=== PATIENT | female | born 1960 | race Caucasian/White ===

== ENCOUNTER 2024-04-13 18:40 | Emergency (ER) | payer BC, SELFPAY ==
[2024-04-13 19:02] VITALS: BP 153/82
[2024-04-13 19:16] LABS: % Basophils 0.6 % (0-2); % Eosinophils 0.9 % (0-6); % Immature Granulocytes 0.1 % (0-0.5); % Lymphocytes 29.7 % (20.5-51.1); % Monocytes 7.4 % (1.7-9.3); % Neutrophils 61.3 % (42.2-75.2); Absolute Eosinophils 0.1 10^3/uL (0-0.7); Absolute Lymphocytes 2.1 10^3/uL (1.2-3.4); Absolute Monocytes 0.5 10^3/uL (0.1-0.6); Absolute Neutrophils 4.3 10^3/uL (1.4-6.5); Hematocrit 37.4 % (37.0-47.0); Hemoglobin 12.7 g/dL (12.0-16.0); Mean Corpuscular Volume 88.4 fL (81.0-99.0); Nucleated Red Blood Cells % 0 %; Platelet Count 243 10^3/uL (130-400); Red Blood Cell Count 4.23 10^6/uL (4.20-5.40); Red Cell Dist. Width 13.3 % (11.5-14.5)
[2024-04-13 19:32] LABS: ALT (SGPT) 16 U/L (0-35); AST (SGOT) 27 U/L (14-36); Albumin 4.9 g/dl (3.5-5.0); Alkaline Phosphatase 92 U/L (38-126); Blood Urea Nitrogen 24 mg/dl (7-17); Calcium 9.9 mg/dl (8.4-10.2); Carbon Dioxide 30 mmol/L (22-30); Chloride 104 mmol/L (98-107); Glucose 96 mg/dl (70-99); Potassium 4.7 mmol/L (3.5-5.1); Sodium 144 mmol/L (135-145); Total Bilirubin 0.6 mg/dl (0.2-1.3); Total Protein 7.5 g/dl (6.3-8.2); eGFR > 60.00
[2024-04-13 19:39] LABS: Troponin I 0.026 ng/ml
[2024-04-13 21:32] VITALS: BMI 20.9
--- NOTE | 2024-04-13 21:54 | ED.GENMED ---
History of Present Illness
<Tatiana Coleman DO, Resident - Last Filed: 04/13/24 23:44>
General
Chief Complaint: Chest Pain
Source: patient and spouse
Exam Limitations: none
Time Seen by Provider: 04/13/24 21:31
Nursing documentation reviewed up to this point in time: agreed with except (pt now endorses SOB)
History of Present Illness
History of Present Illness:
Ms. Debra Stone is a 63yo previously healthy, active female presenting to the ED with chest pain. The substernal chest pain is a dull pressure. The first episode occurred yesterday at 21:30 after the patient walked up stairs. She rated the pain
10/10 and it resolved within 5 minutes. The chest pain is associated with SOB and lethargy. There is no radiation of the pain. There are no alleviating or aggravating factors. The second episode occurred today at 18:30 while playing golf. The pain
was a 3/10 and the pt felt more lethargic. ECG at urgent care was normal. While in the ED waiting room, the patient described swelling on both sides of her neck, which has since resolved. She is still lethargic. Pt denies JAIME, fever, weakness,
numbness, vision changes, N/V/D, leg swelling.
Past History
<Tatiana Coleman DO, Resident - Last Filed: 04/13/24 23:44>
Past History
ED Past Medical History: None
Patient has exhibited threatening behavior?: No
Social History
Personal:
Review of Systems
<Tatiana Coleman DO, Resident - Last Filed: 04/13/24 23:44>
Review of Systems
Allergies reviewed?: Yes
Constitutional: Reports fatigue; Denies fever or sleep disturbance
EENT: Reports no symptoms
Respiratory: Reports trouble breathing; Denies cough
Cardiac: Reports chest pain; Denies palpitations or syncope
ABD/GI: Denies abdominal pain, nausea, vomiting or diarrhea
: Reports no symptoms
Musculoskeletal: Denies edema
Neurological: Denies dizzy, headache or weakness
Phy Exam
<Tatiana Coleman DO, Resident - Last Filed: 04/13/24 23:44>
Physical Exam
Physical Exam:
.
General Physical Exam
General Presentation: well appearing
General age: appears younger than age
General Skin: warm
General Habitus: normal
General Mental: alert
General Hydration: appears well hydrated
Cardiovascular Exam
Cardiovascular Exam: regular rate/rhythm, no edema, no gallop, no JVD, no murmur and other (carotid bruit b/l, R>L)
Heart Sounds: normal
TONY Score
Is patient's age greater than or equal to 65 years: No
Does patient have 3 or more CAD risk factors?: No
Does patient have known CAD: No
Has patient used ASA in past seven days?: No
Has patient had severe angina in past 24 hrs?: Yes
Are patient's cardiac markers elevated?: No
Are there ST changes greater 0.05mm?: No
Result score?: 1
Pulmonary Exam
Pulmonary Exam: lungs clear
Oxygen Status: room air
Gastrointestinal Exam
Gastrointestinal Exam: normal bowel sounds, non tender, soft, no organomegaly, no pulsatile mass and non distended
<Guido Capone DO - Last Filed: 04/15/24 22:58>
TONY Score
Result score?: 1
Scores
<Guido Capone DO - Last Filed: 04/15/24 22:58>
Heart Score for Chest Pain Patients
STEMI patient?: No
History: Slightly or Non-Suspicious
ECG: Normal
Age: >45 - <65 years
Risk Factors: 1 or 2 Risk Factors
Troponin: </= Normal Limit
Heart Score for Chest Pain Patients: 2
Heart Score Risk: 2.5% MACE over next 6 weeks
Course
<Tatiana Coleman DO, Resident - Last Filed: 04/13/24 23:44>
Orders/Labs/Results
Orders:
Orders
04/13/24 18:54
Electrocardiogram (*1) Urgent
Reason for Study: Chest Pain
Cardiac Monitoring- Treatment ONCE
EKG- Treatment ONCE
IV Insert/Care/Rem.- Treatment PRN
O2 Therapy [RESP] Urgent
Titrate/Wean O2 to maintain O2 sat greater than (%): 90
Special Instructions: Maintain sats >/=90%
Pulse Ox/spot Check [RESP] Urgent
Quantity: 1
Special Instructions: ON ROOM AIR
04/13/24 19:08
Complete Blood Count/With Diff Urgent
Comprehensive Metabolic Panel Urgent
Troponin I Urgent
04/13/24 21:50
Troponin I Urgent
04/13/24 22:30
0.9% Sodium Chloride 1000 ml [Nss] 1,000 ml IV 500 mls/hr
04/13/24 22:55
CT Chest Angio W/wo Iv Contras Urgent
Comment:
Reason For Exam: cp radi into neck
04/13/24 23:23
EKG- Treatment ONCE
04/14/24
Electrocardiogram (*1) Stat
Reason for Study: Chest Pain
04/14/24 01:06
Troponin I Urgent
Abnormal Lab Results
04/13/24
19:08
MPV 11.0 H fL
(7.4-10.4)
BUN 24 H mg/dl
(7-17)
04/13/24 19:08
04/13/24 19:08
Vital Signs
Initial and Last Documented VS:
Initial Vital Signs
Temp Pulse Resp BP Pulse Ox
98.3 F 82 19 153/82 100
04/13/24 19:02 04/13/24 19:02 04/13/24 19:02 04/13/24 19:02 04/13/24 19:02
Last Documented Vital Signs
Temp Pulse Resp BP Pulse Ox
98.3 F 54 14 120/71 99
04/13/24 19:02 04/14/24 01:45 04/14/24 01:45 04/14/24 01:45 04/14/24 01:45
<Guido Capone, DO - Last Filed: 04/15/24 22:58>
Orders/Labs/Results
Orders:
Orders
04/13/24 18:54
Electrocardiogram (*1) Urgent
Reason for Study: Chest Pain
Cardiac Monitoring- Treatment ONCE
EKG- Treatment ONCE
IV Insert/Care/Rem.- Treatment PRN
O2 Therapy [RESP] Urgent
Titrate/Wean O2 to maintain O2 sat greater than (%): 90
Special Instructions: Maintain sats >/=90%
Pulse Ox/spot Check [RESP] Urgent
Quantity: 1
Special Instructions: ON ROOM AIR
04/13/24 19:08
Complete Blood Count/With Diff Urgent
Comprehensive Metabolic Panel Urgent
Troponin I Urgent
04/13/24 21:50
Troponin I Urgent
04/13/24 22:30
0.9% Sodium Chloride 1000 ml [Nss] 1,000 ml IV 500 mls/hr
04/13/24 22:55
CT Chest Angio W/wo Iv Contras Urgent
Comment:
Reason For Exam: cp radi into neck
04/13/24 23:23
EKG- Treatment ONCE
04/14/24
Electrocardiogram (*1) Stat
Reason for Study: Chest Pain
04/14/24 01:06
Troponin I Urgent
Abnormal Lab Results
04/13/24
19:08
MPV 11.0 H fL
(7.4-10.4)
BUN 24 H mg/dl
(7-17)
04/13/24 19:08
04/13/24 19:08
Vital Signs
Initial and Last Documented VS:
Initial Vital Signs
Temp Pulse Resp BP Pulse Ox
98.3 F 82 19 153/82 100
04/13/24 19:02 04/13/24 19:02 04/13/24 19:02 04/13/24 19:02 04/13/24 19:02
Last Documented Vital Signs
Temp Pulse Resp BP Pulse Ox
98.3 F 54 14 120/71 99
04/13/24 19:02 04/14/24 01:45 04/14/24 01:45 04/14/24 01:45 04/14/24 01:45
<Guido Capone DO - Last Filed: 04/15/24 22:58>
*Critical Care Note
Total Time (30-74mins, 75-104mins- exclusive of procedures): Not Applicable
<Guido Capone DO - Last Filed: 04/15/24 22:58>
Update Note
Update Note:
CTA CHEST
IMPRESSION:
1. Adequate technical study. No acute pulmonary embolism.
2. No thoracic aortic aneurysm or acute aortic dissection. Bibasilar atelectasis
Incidentals:
-Calcified coronary atherosclerosis
- No acute osseous abnormality.
- No acute abnormality within the visualized abdomen.
- No thoracic lymphadenopathy or suspicious lymph nodes.
Case finalized on Apr 14 2024 12:09AM ET
ED Attending Note
<Tatiana Coleman DO, Resident - Last Filed: 04/13/24 23:44>
-
Portions of this chart may have been created with voice recognition software.� Occasional wrong word or��sound alike� substitutions may have occurred due to the inherent limitations of voice recognition software.
<Guido Capone, - Last Filed: 04/15/24 22:58>
ED Attending Note
Patient seen and examined by attending physician: Yes
I performed the substantive portion of visit, reviewed & personally made and approve the management plan that is documented in note by myself or PHILIPP.: Yes
ED Attending Note:
This is a pleasant 63-year-old female who presents with 2 days of left-sided chest pain with radiation into the neck. She describes it as a dull pressure sensation. She states its intermittent and currently has no chest pain. First episode
occurred approximate 24 hours ago after patient was walking up steps. Today the pain occurred while playing golf. She states that today's pain was much less severe than what she experienced yesterday. Patient went to urgent care and had an EKG
which was determined to be normal. Patient denies any current symptoms at this time. Patient was seen in conjunction with the general internal medicine doctor. I have reviewed and agree with her history and treatment plan. On my independent physical exam patient is
awake, alert, and oriented x 3 in no acute distress. Mentating appropriately. Neck is normal without any bruits. Lungs are clear to auscultation bilateral without wheezes rales or rhonchi present. Heart is regular rate and rhythm. Moves all 4
extremities. Skin is warm and dry. Normal affect. Abdomen is soft and nontender. No distention. No tenderness to palpation on anterior chest wall.
Patient does not drink alcohol, engage in illicit drug use, or use tobacco. She denies any previous cardiac history. She has never seen a quoter. Denies any familial cardiac history. She takes gummy vitamins and no other medications. She
is active and exercises daily.
First troponin was slightly bumped. Second troponin is coming down. Will trend for a third
Discharge Plan
Departure
Patient Disposition: Home (Routine Discharge)
Date of Disposition: 04/14/24
Time of Disposition: 01:40
Patient with high blood pressure during this ER visit?: Yes
Discharge Problem:
Chest pain
Instructions: Chest Pain DCA Follow Up, BLOOD PRESSURE
Prescriptions:
No Action
No Current Medications
0
Referrals:
[facility]- [facility] [Provider Group]
Beth Tadeo MD [Family Provider] -
Activity Restrictions/Additional Instructions:
Please follow-up with [facility]. They should be giving you a call in the next day.
It was a pleasure meeting you and taking part in your care. We hope for your continued healing and wellness.
Please read discharge instructions in their entirety. However, they are for general education and may not describe your exact diagnosis at discharge. Information on your ER visit and medical conditions were discussed with you along with appropriate
follow up information...
If indicated, please take your medications as instructed and indicated on discharge paperwork.
Please schedule a follow up appointment as directed. Call to schedule an appointment
Please return to the emergency department with ANY change in, persisting, or worsening of symptoms. If any of your symptoms do not improve, or persist, or become more severe within 6-12 hours, please return to the emergency department for further
care.
Please return to the emergency department if you develop a headache, neck pain/stiffness, fever greater than 100.4F, chest pain, shortness of breath, persistent nausea, vomiting, slurred speech, difficulty walking, numbness/tingling, weakness, signs
of infection or any other symptoms that are worrisome to you.
If you have any questions or concerns please do not hesitate to call the Hospital at or E-mail me directly at [email or web address]
Interventions
Interventions:
*Risk Screen - Suicide Last Done: 04/13/24 19:02
*General Assessment Last Done: 04/13/24 19:02
*Neglect/Abuse Screening Last Done: 04/13/24 19:02
ED- Fall Risk Assessment Last Done: 04/13/24 21:39
*ED COVID-19 Vaccine History Last Done: 04/13/24 21:40
*Nursing Disposition Last Done: 04/14/24 01:45
ED- Cardiac Assessment Last Done: 04/13/24 21:45
Discharge Date and Time
Discharge Date/Time: 04/14/24 01:48
Print Language: SAMOAN
[2024-04-13 22:00] VITALS: BP 115/71
[2024-04-13] MEDS: NSS 1000 IV (22:31)
[2024-04-13 22:32] LABS: Troponin I 0.017 ng/ml
[2024-04-13 23:00] VITALS: BP 115/75
[2024-04-14] VITALS: BP 123/72
[2024-04-14 00:03] VITALS: BP 123/72
[2024-04-14] MEDS: NSS IV (01:20)
[2024-04-14 01:37] LABS: Troponin I < 0.012 ng/ml
[2024-04-14 01:45] VITALS: BP 120/71
== END 2024-04-14 01:48 | disposition home or self-care (01) ==
LOC: EMR 18:40
PROVIDERS: Emergency Medicine; Student in an Organized Health Care Education/Training Program; EMERGENCY PHYSICIAN Student in an Organized Health Care Education/Training Program; FAMILY PHYSICIAN Family Medicine
DX: R07.89 Other chest pain (principal)
CPT/HCPCS: 99284; 71275; 80053; 84484; 85025; 93005; Q9967

== ENCOUNTER → 2024-04-28 15:17 | Outpatient (REF) | payer BC, SELFPAY | LOC: RAD 15:17 | PROVIDERS: ATTENDING PHYSICIAN Nuclear Medicine Nuclear Cardiology; FAMILY PHYSICIAN Family Medicine; REFERRING PHYSICIAN Family Medicine | DX: R07.9 Chest pain, unspecified (principal); M54.2 Cervicalgia; I70.0 Atherosclerosis of aorta | CPT/HCPCS: 93880 ==

== ENCOUNTER → 2024-05-06 10:44 | Outpatient (REF) | payer BC, SELFPAY | LOC: RCS 10:44 | PROVIDERS: ATTENDING PHYSICIAN Nuclear Medicine Nuclear Cardiology; FAMILY PHYSICIAN Family Medicine; REFERRING PHYSICIAN Family Medicine | DX: R07.9 Chest pain, unspecified (principal); I70.0 Atherosclerosis of aorta; M54.2 Cervicalgia | CPT/HCPCS: 93017; 93350 ==

== ENCOUNTER → 2024-05-20 10:17 | Outpatient (REF) | payer BC, SELFPAY | LOC: RCS 10:17 | PROVIDERS: ATTENDING PHYSICIAN Nuclear Medicine Nuclear Cardiology; FAMILY PHYSICIAN Family Medicine; REFERRING PHYSICIAN Family Medicine | DX: R07.9 Chest pain, unspecified (principal); M54.2 Cervicalgia; I70.0 Atherosclerosis of aorta | CPT/HCPCS: 93306 ==